=== PATIENT | female | born 1945 | race African-American/Black ===

== ENCOUNTER 2021-01-28 12:53 | Inpatient (IN) | payer OTHER ==
[2021-01-28] MEDS ORDERED: ACETAMINOPHEN 1000 MG/100 ML VIAL (NON FORMULARY) IVPB ONE (13:28)
[2021-01-28] MEDS ORDERED: LACTATED RINGERS SOLUTION 1000 ML INFUS.BAG IV ONE (13:28)
[2021-01-28] MEDS ORDERED: ACETAMINOPHEN INJECTION 100 ML IVPB ONE (13:58)
[2021-01-28 14:28] LABS: BASO % 1.1 % (0-2.0); EOS % 2.4 % (0-4.5); HEMATOCRIT 36.8 % (32.4-45.2); HEMOGLOBIN 12.3 GM/dL (10.7-15.3); LYMPH % 16.2 % (8-40); MCH 28.6 pg (25.7-33.7); MCHC 33.4 g/dl (32.0-36.0); MEAN CELL VOLUME 85.6 fl (80-96); MONO % 7.9 % (3.8-10.2); NEUT % 72.4 % (42.8-82.8); PLATELET COUNT 353 K/MM3 (134-434); RDW 14.1 % (11.6-15.6); VENOUS O2 SATURATION 37.7 % (70-80); VENOUS PCO2 54.8 mmHg (38-52); VENOUS PH 7.395 (7.310-7.410); WHITE BLOOD COUNT 5.6 K/mm3 (4.0-10.0)
[2021-01-28 14:37] LABS: INR 1.26 (0.83-1.09); PROTHROMBIN TIME (PATIENT) 15.1 SEC (9.7-13.0)
[2021-01-28 14:39] LABS: ACTIVATED PTT 33.3 SECONDS (25.2-36.5)
[2021-01-28 14:49] LABS: CHLORIDE 92 mmol/L (98-107); SODIUM 132 mmol/L (136-145)
[2021-01-28 14:54] LABS: ALBUMIN 2.4 g/dl (3.4-5.0); ANION GAP 7 MMOL/L (8-16); CALCIUM 8.7 mg/dL (8.5-10.1); CO2 32 mmol/L (21-32); GLUCOSE,RANDOM 160 mg/dL (74-106)
[2021-01-28 14:57] LABS: BILIRUBIN,DIRECT 0.2 mg/dL (0.0-0.2); CREATININE 0.5 mg/dL (0.55-1.3); SGOT/AST 59 U/L (15-37); SGPT/ALT 42 U/L (13-61)
[2021-01-28 14:58] LABS: LDH 544 U/L (84-246)
[2021-01-28 14:59] LABS: BILIRUBIN,TOTAL 0.6 mg/dL (0.2-1)
[2021-01-28 15:00] LABS: ALK PHOS 81 U/L (45-117)
[2021-01-28] MEDS ORDERED: DEXAMETHASONE SOD PHOSPHATE 10 MG/1 ML VIAL IVPUSH ONE (15:29)
[2021-01-28] MEDS ORDERED: DEXAMETHASONE SOD PHOSPHATE 10 MG/1 ML VIAL ONE (15:31)
[2021-01-28] MEDS ORDERED: CEFTRIAXONE 1 GM in DEXTROSE 5%-WATER - 100 ML IVPB ONE (16:05)
[2021-01-28] MEDS ORDERED: AZITHROMYCIN IVPB 500 MG in DEXTROSE 5%-WATER - 250 ML IVPB ONE (16:05)
[2021-01-28] MEDS ORDERED: CEFTRIAXONE 1 GM/50 ML BAG ONE (16:27)
[2021-01-28] MEDS ORDERED: DOCUSATE SODIUM 100 MG CAPSULE (FP) PO PRN (16:28)
[2021-01-28] MEDS ORDERED: AZITHROMYCIN IVPB 500 MG/250 ML BAG IVPB ONE (16:28)
[2021-01-28 16:57] LABS: EPI CELLS 23 /uL (0-25.1); HYALINE CASTS 0 /uL (0-3.1); PH,URINE 6.5 (5.0-8.0); URINE APPEARANCE CLEAR; URINE BACTERIA 927 /uL (0-1359); URINE BILIRUBIN NEGATIVE (NEGATIVE); URINE COLOR YELLOW; URINE GLUCOSE (UA) NEGATIVE (NEGATIVE); URINE KETONE NEGATIVE (NEGATIVE); URINE LEUK ESTERASE 1+ (NEGATIVE); URINE NITRITE NEGATIVE (NEGATIVE); URINE PROTEIN 1+ (NEGATIVE); URINE RBC 7 /uL (0-23.9); URINE WBC 36 /uL (0-25.8)
[2021-01-28] MEDS: INSULIN SLIDING SCALE (NOVOLOG) 1 VIAL SQ SCH (21:58)
[2021-01-29 00:43] VITALS: BMI 24.0
[2021-01-29] MEDS: INSULIN SLIDING SCALE (NOVOLOG) 1 VIAL SQ SCH ×4 (06:21→20:59)
[2021-01-29 08:53] LABS: BASO % 0.9 % (0-2.0); HEMOGLOBIN 12.1 GM/dL (10.7-15.3); LYMPH % 15.3 % (8-40); MCH 28.6 pg (25.7-33.7); MCHC 33.6 g/dl (32.0-36.0); MONO % 10.8 % (3.8-10.2); PLATELET COUNT 363 K/MM3 (134-434); RBC 4.24 M/mm3 (3.60-5.2); WHITE BLOOD COUNT 4.6 K/mm3 (4.0-10.0)
[2021-01-29 09:35] LABS: ALBUMIN 2.2 g/dl (3.4-5.0); BLOOD UREA NITROGEN 7.7 mg/dL (7-18); CALCIUM 8.7 mg/dL (8.5-10.1); MAGNESIUM 2.1 mg/dL (1.8-2.4)
[2021-01-29 09:38] LABS: CREATININE 0.4 mg/dL (0.55-1.3)
[2021-01-29 09:39] LABS: PHOSPHOROUS 3.9 mg/dL (2.5-4.9)
[2021-01-29 09:40] LABS: BILIRUBIN,TOTAL 0.4 mg/dL (0.2-1); TOT PROT 7.6 g/dl (6.4-8.2)
[2021-01-29] MEDS ORDERED: ENOXAPARIN NA (PORCINE) 40 MG/0.4 ML DISP.SYRIN SQ SCH (10:00)
[2021-01-29] MEDS ORDERED: INSULIN (NOVOLOG) ASPART 100 UNITS/ML 10ML VIAL ONE (10:56)
[2021-01-29] MEDS: ASCORBIC ACID 500 MG TABLET (FP) PO SCH (11:05)
[2021-01-29] MEDS: FAMOTIDINE 20 MG TABLET PO SCH (11:05)
[2021-01-29] MEDS: amLODIPine BESYLATE 5 MG TABLET (FP) PO SCH (11:06)
[2021-01-29] MEDS: ENOXAPARIN NA (PORCINE) 80 MG/0.8 ML DISP.SYRIN SQ SCH ×2 (11:06→21:00)
[2021-01-29] MEDS: ZINC SULFATE 220 MG CAPSULE (FP) PO SCH (11:06)
[2021-01-29] MEDS: DEXAMETHASONE 4 MG TABLET (FP) PO SCH (11:07)
[2021-01-29 11:18] LABS: N-TERMINAL BNP 313.1 pg/ml (5-450)
[2021-01-29] MEDS ORDERED: cefTRIAXone SODIUM 1 GM VIAL ONE (14:30)
[2021-01-29] MEDS ORDERED: DEXTROSE 5%-WATER - 50 ML IVPB ONE (14:30)
[2021-01-29] MEDS: CEFTRIAXONE 1 GM in DEXTROSE 5%-WATER - 50 ML IVPB SCH (15:39)
[2021-01-29] MEDS: AZITHROMYCIN IVPB 500 MG/250 ML BAG IVPB SCH (15:40)
[2021-01-30] MEDS: INSULIN SLIDING SCALE (NOVOLOG) 1 VIAL SQ SCH ×4 (06:14→21:34)
[2021-01-30 09:03] LABS: BASO % 0.3 % (0-2.0); EOS % 0.1 % (0-4.5); HEMATOCRIT 34.6 % (32.4-45.2); HEMOGLOBIN 11.7 GM/dL (10.7-15.3); LYMPH % 18.1 % (8-40); MCH 28.9 pg (25.7-33.7); MCHC 33.7 g/dl (32.0-36.0); MEAN CELL VOLUME 85.7 fl (80-96); MEAN PLT VOLUME 8.3 fl (7.5-11.1); MONO % 12.5 % (3.8-10.2); PLATELET COUNT 306 K/MM3 (134-434); RBC 4.03 M/mm3 (3.60-5.2); RDW 14.2 % (11.6-15.6); WHITE BLOOD COUNT 5.7 K/mm3 (4.0-10.0)
[2021-01-30] MEDS ORDERED: DEXTROSE 5%-WATER - 50 ML IVPB ONE (09:11)
[2021-01-30] MEDS ORDERED: PT OWN MED DRAWER 7, Y5N ONE (09:11)
[2021-01-30] MEDS ORDERED: cefTRIAXone SODIUM 1 GM VIAL ONE (09:11)
[2021-01-30] MEDS: ASCORBIC ACID 500 MG TABLET (FP) PO SCH (09:15)
[2021-01-30] MEDS: DEXAMETHASONE 4 MG TABLET (FP) PO SCH (09:15)
[2021-01-30] MEDS: amLODIPine BESYLATE 5 MG TABLET (FP) PO SCH (09:15)
[2021-01-30] MEDS: CEFTRIAXONE 1 GM in DEXTROSE 5%-WATER - 50 ML IVPB SCH (09:15)
[2021-01-30] MEDS: ZINC SULFATE 220 MG CAPSULE (FP) PO SCH (09:15)
[2021-01-30] MEDS: FAMOTIDINE 20 MG TABLET PO SCH (09:15)
[2021-01-30] MEDS: ENOXAPARIN NA (PORCINE) 80 MG/0.8 ML DISP.SYRIN SQ SCH ×2 (09:16→21:34)
[2021-01-30 09:19] LABS: ALBUMIN 2.2 g/dl (3.4-5.0); BLOOD UREA NITROGEN 7.8 mg/dL (7-18); CALCIUM 8.6 mg/dL (8.5-10.1); MAGNESIUM 2.1 mg/dL (1.8-2.4)
[2021-01-30 09:21] LABS: CREATININE 0.4 mg/dL (0.55-1.3)
[2021-01-30 09:23] LABS: BILIRUBIN,TOTAL 0.5 mg/dL (0.2-1); TOT PROT 7.3 g/dl (6.4-8.2)
[2021-01-30] MEDS: AZITHROMYCIN IVPB 500 MG/250 ML BAG IVPB SCH (10:03)
[2021-01-31] MEDS: INSULIN SLIDING SCALE (NOVOLOG) 1 VIAL SQ SCH ×4 (06:51→22:20)
[2021-01-31 08:38] LABS: BASO % 0.5 % (0-2.0); EOS % 0.2 % (0-4.5); HEMATOCRIT 35.5 % (32.4-45.2); HEMOGLOBIN 11.9 GM/dL (10.7-15.3); LYMPH % 19.5 % (8-40); MCH 28.9 pg (25.7-33.7); MCHC 33.5 g/dl (32.0-36.0); MEAN PLT VOLUME 8.1 fl (7.5-11.1); MONO % 11.3 % (3.8-10.2); NEUT % 68.5 % (42.8-82.8); PLATELET COUNT 380 K/MM3 (134-434); RBC 4.13 M/mm3 (3.60-5.2); RDW 14.1 % (11.6-15.6); WHITE BLOOD COUNT 5.9 K/mm3 (4.0-10.0)
[2021-01-31 09:14] LABS: CALCIUM 8.5 mg/dL (8.5-10.1)
[2021-01-31 09:15] LABS: ALBUMIN 2.4 g/dl (3.4-5.0); BLOOD UREA NITROGEN 8.6 mg/dL (7-18)
[2021-01-31 09:18] LABS: CREATININE 0.5 mg/dL (0.55-1.3)
[2021-01-31 09:19] LABS: TOT PROT 7.6 g/dl (6.4-8.2)
[2021-01-31 09:21] LABS: BILIRUBIN,TOTAL 0.4 mg/dL (0.2-1)
[2021-01-31] MEDS ORDERED: PT OWN MED DRAWER 7, Y5N ONE (09:43)
[2021-01-31] MEDS ORDERED: cefTRIAXone SODIUM 1 GM VIAL ONE (09:43)
[2021-01-31] MEDS ORDERED: DEXTROSE 5%-WATER - 50 ML IVPB ONE (09:44)
[2021-01-31] MEDS: DEXAMETHASONE 4 MG TABLET (FP) PO SCH (09:45)
[2021-01-31] MEDS: amLODIPine BESYLATE 5 MG TABLET (FP) PO SCH (09:45)
[2021-01-31] MEDS: FAMOTIDINE 20 MG TABLET PO SCH (09:45)
[2021-01-31] MEDS: ENOXAPARIN NA (PORCINE) 80 MG/0.8 ML DISP.SYRIN SQ SCH ×2 (09:45→22:19)
[2021-01-31] MEDS: CEFTRIAXONE 1 GM in DEXTROSE 5%-WATER - 50 ML IVPB SCH (09:45)
[2021-01-31] MEDS: ASCORBIC ACID 500 MG TABLET (FP) PO SCH (09:45)
[2021-01-31] MEDS: ZINC SULFATE 220 MG CAPSULE (FP) PO SCH (09:45)
[2021-01-31] MEDS: AZITHROMYCIN IVPB 500 MG/250 ML BAG IVPB SCH (10:17)
[2021-02-01] MEDS: INSULIN SLIDING SCALE (NOVOLOG) 1 VIAL SQ SCH ×4 (06:39→21:07)
[2021-02-01] MEDS ORDERED: INSULIN (NOVOLOG) ASPART 100 UNITS/ML 10ML VIAL ONE ×2 (06:46→21:01)
[2021-02-01 08:50] LABS: BASO % 0.3 % (0-2.0); EOS % 0.2 % (0-4.5); HEMATOCRIT 38.4 % (32.4-45.2); HEMOGLOBIN 12.9 GM/dL (10.7-15.3); LYMPH % 23.1 % (8-40); MCH 29.3 pg (25.7-33.7); MCHC 33.6 g/dl (32.0-36.0); MEAN PLT VOLUME 8.2 fl (7.5-11.1); MONO % 13.2 % (3.8-10.2); NEUT % 63.2 % (42.8-82.8); PLATELET COUNT 364 K/MM3 (134-434); RBC 4.42 M/mm3 (3.60-5.2); RDW 14.5 % (11.6-15.6); WHITE BLOOD COUNT 5.6 K/mm3 (4.0-10.0)
[2021-02-01 09:05] LABS: CALCIUM 9.3 mg/dL (8.5-10.1)
[2021-02-01 09:06] LABS: ALBUMIN 2.6 g/dl (3.4-5.0); BLOOD UREA NITROGEN 9.5 mg/dL (7-18); MAGNESIUM 2.1 mg/dL (1.8-2.4)
[2021-02-01 09:09] LABS: CREATININE 0.6 mg/dL (0.55-1.3)
[2021-02-01 09:11] LABS: BILIRUBIN,TOTAL 0.3 mg/dL (0.2-1)
[2021-02-01] MEDS ORDERED: cefTRIAXone SODIUM 1 GM VIAL ONE (10:10)
[2021-02-01] MEDS ORDERED: DEXTROSE 5%-WATER - 50 ML IVPB ONE (10:10)
[2021-02-01] MEDS ORDERED: PT OWN MED DRAWER 7, Y5N ONE ×2 (10:10→10:18)
[2021-02-01] MEDS: ENOXAPARIN NA (PORCINE) 80 MG/0.8 ML DISP.SYRIN SQ SCH ×2 (10:20→21:08)
[2021-02-01] MEDS: amLODIPine BESYLATE 5 MG TABLET (FP) PO SCH (10:20)
[2021-02-01] MEDS: AZITHROMYCIN IVPB 500 MG/250 ML BAG IVPB SCH (10:20)
[2021-02-01] MEDS: CEFTRIAXONE 1 GM in DEXTROSE 5%-WATER - 50 ML IVPB SCH (10:20)
[2021-02-01] MEDS: ZINC SULFATE 220 MG CAPSULE (FP) PO SCH (10:20)
[2021-02-01] MEDS: ASCORBIC ACID 500 MG TABLET (FP) PO SCH (10:20)
[2021-02-01] MEDS: DEXAMETHASONE 4 MG TABLET (FP) PO SCH (10:20)
[2021-02-01] MEDS: FAMOTIDINE 20 MG TABLET PO SCH (10:20)
[2021-02-02] MEDS: INSULIN SLIDING SCALE (NOVOLOG) 1 VIAL SQ SCH ×4 (06:48→22:06)
[2021-02-02 10:10] LABS: BASO % 0.5 % (0-2.0); EOS % 0.1 % (0-4.5); HEMATOCRIT 36.6 % (32.4-45.2); HEMOGLOBIN 12.2 GM/dL (10.7-15.3); LYMPH % 22.5 % (8-40); MCH 28.8 pg (25.7-33.7); MCHC 33.5 g/dl (32.0-36.0); MEAN CELL VOLUME 86.1 fl (80-96); MEAN PLT VOLUME 8.1 fl (7.5-11.1); MONO % 8.7 % (3.8-10.2); NEUT % 68.2 % (42.8-82.8); PLATELET COUNT 378 K/MM3 (134-434); RBC 4.25 M/mm3 (3.60-5.2); RDW 14.6 % (11.6-15.6); WHITE BLOOD COUNT 6.4 K/mm3 (4.0-10.0)
[2021-02-02 10:33] LABS: CALCIUM 9.3 mg/dL (8.5-10.1)
[2021-02-02 10:34] LABS: ALBUMIN 2.5 g/dl (3.4-5.0); BLOOD UREA NITROGEN 11.2 mg/dL (7-18); MAGNESIUM 2.1 mg/dL (1.8-2.4)
[2021-02-02 10:37] LABS: CREATININE 0.5 mg/dL (0.55-1.3)
[2021-02-02 10:38] LABS: BILIRUBIN,TOTAL 0.2 mg/dL (0.2-1)
[2021-02-02 10:39] LABS: TOT PROT 7.8 g/dl (6.4-8.2)
[2021-02-02] MEDS ORDERED: cefTRIAXone SODIUM 1 GM VIAL ONE (11:01)
[2021-02-02] MEDS ORDERED: DEXTROSE 5%-WATER - 50 ML IVPB ONE (11:02)
[2021-02-02] MEDS ORDERED: PT OWN MED DRAWER 7, Y5N ONE ×2 (11:18→11:21)
[2021-02-02] MEDS: FAMOTIDINE 20 MG TABLET PO SCH (11:22)
[2021-02-02] MEDS: amLODIPine BESYLATE 5 MG TABLET (FP) PO SCH (11:22)
[2021-02-02] MEDS: ZINC SULFATE 220 MG CAPSULE (FP) PO SCH (11:22)
[2021-02-02] MEDS: CEFTRIAXONE 1 GM in DEXTROSE 5%-WATER - 50 ML IVPB SCH (11:23)
[2021-02-02] MEDS: AZITHROMYCIN IVPB 500 MG/250 ML BAG IVPB SCH (11:23)
[2021-02-02] MEDS: DEXAMETHASONE 4 MG TABLET (FP) PO SCH (11:23)
[2021-02-02] MEDS: ASCORBIC ACID 500 MG TABLET (FP) PO SCH (11:25)
[2021-02-02] MEDS: ENOXAPARIN NA (PORCINE) 80 MG/0.8 ML DISP.SYRIN SQ SCH (11:25)
[2021-02-03] MEDS: INSULIN SLIDING SCALE (NOVOLOG) 1 VIAL SQ SCH ×3 (07:07→16:26)
[2021-02-03 07:09] LABS: IGA IMMUNOGLOBULIN 579 mg/dL (64-422); IGG QN IMMUNOGLOBULIN 2041 mg/dL (586-1602); IGM QN SERUM 122 mg/dL (26-217)
[2021-02-03 08:27] LABS: BASO % 0.3 % (0-2.0); EOS % 0.1 % (0-4.5); HEMATOCRIT 37.2 % (32.4-45.2); HEMOGLOBIN 12.3 GM/dL (10.7-15.3); LYMPH % 16.9 % (8-40); MCH 28.6 pg (25.7-33.7); MEAN CELL VOLUME 86.9 fl (80-96); MEAN PLT VOLUME 8.2 fl (7.5-11.1); MONO % 12.7 % (3.8-10.2); PLATELET COUNT 381 K/MM3 (134-434); RBC 4.28 M/mm3 (3.60-5.2); RDW 14.4 % (11.6-15.6); WHITE BLOOD COUNT 6.1 K/mm3 (4.0-10.0)
[2021-02-03 08:50] LABS: CALCIUM 9.5 mg/dL (8.5-10.1)
[2021-02-03 08:51] LABS: ALBUMIN 2.6 g/dl (3.4-5.0); BLOOD UREA NITROGEN 9.5 mg/dL (7-18); MAGNESIUM 2.2 mg/dL (1.8-2.4)
[2021-02-03 08:54] LABS: CREATININE 0.5 mg/dL (0.55-1.3)
[2021-02-03 08:55] LABS: BILIRUBIN,TOTAL 0.4 mg/dL (0.2-1); TOT PROT 7.8 g/dl (6.4-8.2)
[2021-02-03] MEDS ORDERED: PT OWN MED DRAWER 7, Y5N ONE (09:32)
[2021-02-03] MEDS: ENOXAPARIN NA (PORCINE) 80 MG/0.8 ML DISP.SYRIN SQ SCH (09:39)
[2021-02-03] MEDS: amLODIPine BESYLATE 5 MG TABLET (FP) PO SCH (09:39)
[2021-02-03] MEDS: FAMOTIDINE 20 MG TABLET PO SCH (09:39)
[2021-02-03] MEDS: DEXAMETHASONE 4 MG TABLET (FP) PO SCH (09:40)
[2021-02-03] MEDS ORDERED: INSULIN (NOVOLOG) ASPART 100 UNITS/ML 10ML VIAL ONE (11:29)
[2021-02-03 14:08] VITALS: BP 100/57; PULSE 83; TEMP 98
== END 2021-02-03 20:17 | disposition home or self-care (01) | DRG 133 ==
LOC: JER 12:53 → JERBED 15:28 → J6S 20:56
PROVIDERS: ATTEND Nurse Practitioner Acute Care
DX: J96.01 Acute respiratory failure with hypoxia (principal); J84.10 Pulmonary fibrosis, unspecified; I10 Essential (primary) hypertension; E11.9 Type 2 diabetes mellitus without complications; E78.5 Hyperlipidemia, unspecified; R63.4 Abnormal weight loss; Z68.24 Body mass index [BMI] 24.0-24.9, adult; R68.81 Early satiety; K59.09 Other constipation; F32.9 Major depressive disorder, single episode, unspecified; Z87.891 Personal history of nicotine dependence; Z99.81 Dependence on supplemental oxygen
CPT/HCPCS: 36415; 71045-TC-FY; 71250-TC; 74177-TC; 80053; 80061; 81003; 82248; 82272; 82378; 82550; 82728; 82784; 82803; 82962; 83036; 83605; 83615; 83721; 83735; 83880; 84100; 84439; 84443; 84484; 85025; 85379; 85610; 85651; 85730; 86038; 86140; 86301; 86304; 86431; 86480; 86769; 87040; 87086; 87804; 87899; 93005; 93010; 93306-TC; 93970-TC; 94761; 97116-GP; 97162-GP; 99285-25; C9803; J0131; J1100; Q9967; U0003; U0005